=== PATIENT | male | born 1985 | race Hispanic/Latino ===

== ENCOUNTER 2018-04-20 18:51 | Emergency (ER) | payer OTHER ==
[2018-04-20 19:05] VITALS: BP 131/84; PULSE 73; RESP 18; TEMP 98.1; O2SAT 100
[2018-04-20 20:09] LABS: URINE BILIRUBIN NEGATIVE (NEGATIVE); URINE BLOOD NEGATIVE (NEGATIVE); URINE CLARITY Clear (Clear); URINE COLOR Straw (YELLOW); URINE GLUCOSE (UA) NORMAL (Normal); URINE LEUKOCYTE ESTERASE NEG Leu/uL (Negative); URINE PROTEIN NEGATIVE (NEGATIVE); URINE UROBILINOGEN NORMAL mg/dL (0.2-1.0)
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
[2018-04-20] MEDS ORDERED: Emtricitabine-Tenofovir 200 mg-300 mg Tab PO NR (20:15)
== END 2018-04-20 21:05 | disposition home or self-care (01) ==
LOC: C.ER 18:51
DX: Z20.2 Contact with and (suspected) exposure to infections with a predominantly sexual mode of transmission (principal)